=== PATIENT | female | born 2005 ===

== ENCOUNTER 2024-09-23 18:44 | Outpatient (REF) | payer OTHER, SELFPAY ==
--- OUTSIDE RECORDS SUMMARY | 2024-09-23 18:52 | XMS_ITS | Referral Summary ---
Author Organization [facility] Address [address] [place] [address] Care Team Providers Care Soda Dialyzer Name Role Phone Noelle Schmitz Primary Care Provider [phone] Encounters Date Type Department Care Team Description 08/31/2024 7:27 PM EDT - 09/01/2024 3:06 AM EDT Emergency [facility] Emergency Department [address] [place] [id number] Kvng Hodge MD Shaw, Daniel L, MD Chest pain, unspecified type (Primary Dx) Discharge Disposition: Short Term/Acute Care [facility] (02) from Last 3 Months Allergies Active Allergy Reactions Criticality Noted Date Comments Amoxicillin Hives 08/31/2024 Azithromycin Hives 08/31/2024 Clindamycin Hives 08/31/2024 Fremanezumab-Vfrm Hives 08/31/2024 Gabapentin Hallucinations 08/31/2024 Latex Rash 08/31/2024 Penicillin Hives 08/31/2024 Procaine Anaphylaxis High 08/31/2024 Rizatriptan Hives 08/31/2024 Sulfa (Sulfonamide Antibiotics) Hives 08/19 Sumatriptan Hives 08/31/2024 Tomato Hives 08/31/2024 Vancomycin Hives 08/31/2024 Medications levETIRAcetam (KEPPRA) 500 mg tablet Take 500 mg by mouth 2 times a day. Active rifabutin (MYCOBUTIN) 150 mg capsule Take 300 mg by mouth once a day. Active dicyclomine (BENTYL) 20 mg tablet Take 20 mg by mouth 4 times a day. Active metoprolol succinate XL (TOPROL XL) 50 mg tablet Take 50 mg by mouth once a day. Active traZODone (DESYREL) 150 mg tablet Take 200 mg by mouth nightly. Active apixaban (ELIQUIS) 2.5 mg tablet Take 2.5 mg by mouth every 12 hours. Active cyclobenzaprin e (FLEXERIL) 5 mg tablet Take 5 mg by mouth 3 times a day as needed for muscle spasms. Active famotidine (PEPCID) 20 mg tablet Take 20 mg by mouth 2 times a day. Active hydrOXYzine HCL (ATARAX) 25 mg tablet Take 25 mg by mouth 3 times a day as needed for itching. Active pantoprazole (PROTONIX) 40 mg injection Infuse 40 mg intravenously once a day. Active prochlorperazi ne (COMPAZINE) 10 mg tablet Take 10 mg by mouth 2 (two) times a day. Active sertraline (ZOLOFT) 100 mg tablet Take 150 mg by mouth once a day. Active sucralfate (CARAFATE) 1 gram tablet Take 0.5 g by mouth 5 times a day. Active DAPTOmycin in 0.9 % sod chlor 500 mg/50 mL piggyback Infuse 4 mg/kg intravenously once a day. Active Social History Tobacco Use Types Packs/Day Years Used Date Smoking Tobacco: Never Assessed Comments No Sex and Gender Information Value Date Recorded Sex Assigned at Female 08/31/2024 7:26 PM EDT Legal Sex Female 7:25 PM EDT Gender Identity Female 08/31/2024 7:26 PM EDT Sexual Orientation Not on file Last Filed Vital Signs Vital Sign Reading Time Taken Comments Blood Pressure 114/67 08/31/2024 11:46 PM EDT Pulse 82 08/31/2024 11:38 PM EDT Temperature 37.4 C (99.3 F) 08/31/2024 11:38 PM EDT Respiratory Rate 16 08/31/2024 11:38 PM EDT Oxygen Saturation 98% 08/31/2024 11:38 PM EDT Inhaled Oxygen Concentration - - Weight 90.7 kg (200 lb) 08/31/2024 7:42 PM EDT Height 177.8 cm (5' 10 ) 08/31/2024 7:42 PM EDT Body Mass Index 28.7 08/31/2024 7:42 PM EDT Plan of Treatment Not on file Procedures * Due to [place] [employer] law, this organization might not be sharing negative HIV tests. Procedure Name Priority Date/Time Associated Diagnosis Comments XR CHEST PORTABLE 1 VIEW STAT 08/31/2024 8:20 PM EDT ECG 12-LEAD STAT 08/31/2024 8:10 PM EDT TROPONIN T HIGH SENSITIVITY STAT 08/31/2024 7:59 PM EDT COMPREHENSIVE METABOLIC PANEL STAT 08/31/2024 7:59 PM EDT CBC STAT 08/31/2024 7:59 PM EDT from Last 3 Months Results * Due to [place] [employer] law, this organization might not be sharing negative HIV tests. * XR Chest Portable 1 View (08/31/2024 8:20 PM EDT) Anatomical Region Laterality Modality Body Radiographic Jaleesa ging 08/31/2024 9:48 PM EDT Impressions 08/31/2024 9:48 PM EDT No acute pulmonary process. No acute displaced fractures. If this radiology report contains a blank impression section, it is an incomplete radiology report. Please contact the interpreting radiologist or applicable radiology division as soon as possible to obtain the completed interpretation. Workstation ID: [id number] Narrative 08/31/2024 9:48 PM EDT COMPARISON: None. FINDINGS: Multiple overlying telemetry leads. Left-sided PICC with tip termination at the level of the cavoatrial junction. The heart size, mediastinal contours and pulmonary vasculature are within normal limits. The lung volumes are normally inflated. There is no consolidation, pleural effusion or pneumothorax identified. No acute displaced fractures. Resulting Agency Comment [id number] Procedure Note Rolf Anderson MD - 08/31/2024 COMPARISON: None. FINDINGS: Multiple overlying telemetry leads. Left-sided PICC with tip termination at the level of the cavoatrialjunction. The heart size, mediastinal contours and pulmonary vasculature are withinnormal limits. The lung volumes are normally inflated. There is no consolidation, pleuraleffusion or pneumothorax identified. No acute displaced fractures. IMPRESSION: No acute pulmonary process. No acute displaced fractures. If this radiology report contains a blank impression section, it is anincomplete radiology report. Please contact the interpreting radiologistor applicable radiology division as soon as possible to obtain thecompleted interpretation. Workstation ID: [id number] Kvng Hodge MD IMG XR PROCEDURES Final Result * ECG 12 lead (08/31/2024 8:10 PM EDT) Ventricular Rate EKG 94 BPM MUSE EKG Atrial Rate 94 BPM MUSE EKG [place] Interval 154 ms MUSE EKG QRS Interval 66 ms MUSE EKG QT Interval 330 ms MUSE EKG QTC Interval 412 ms MUSE EKG P [place] 43 degrees MUSE EKG R [place] -2 degrees MUSE EKG T Wave [place] 51 degrees MUSE EKG 08/31/2024 8:10 PM EDT 09/01/2024 9:13 AM EDT Impressions MUSE EKG - 09/01/2024 9:13 AM EDT Normal sinus rhythm with artifact No previous ECGs available Confirmed by Cece Carolina ([id number]) on 09/01/2024 9:13:28 AM Narrative Procedure Note Cece Carolina MD - 09/01/2024 IMPRESSION: Normal sinus rhythm with artifact No previous ECGs available Confirmed by Cece Carolina ([id number]) on 09/01/2024 9:13:28 AM Kvng Hogde MD ECG ORDERABLES Final Result MUSE EKG * Troponin T, High Sensitivity (08/31/2024 7:59 PM EDT) Troponin T High Sensitivity 6 6 - 14 ng/L 08/31/2024 9:05 PM EDT [facility] Comment: [id number] level of 52 ng/L or higher at 0-hour at presentation is recommended by the ESC 0/1-hour algorithm for identifying patients at high risk for ruling in acute myocardial infarction (AMI) in the appropriate clinical context. Repeat troponin testing 1-3 hours after the initial sample may be helpful in assessing for ongoing myocardial injury. Troponin elevations can be seen in several other non-infarct conditions, and the change (delta) should be evaluated in line with the 4th Teague Definition of AMI. Troponin baseline and serial elevation for a significant delta should be interpreted with clinical presentation, history, signs and symptoms, ECG, and biomarker concentrations. For inpatient setting: Value <12ng/L is considered negative for all genders. 0-1hr: A delta change of <3 will be considered negative/flat if chest pain onset >3 hours 0-3hr: A delta change of <7 will be considered negative/flat Blood Structure of peripheral vein / Unknown Venipuncture / Unknown 08/31/2024 7:59 PM EDT 08/31/2024 8:03 PM EDT us Kvng Hodge MD LAB BLOOD ORDERABLES Final Res ult [facility] [address] [place] [address] [address] [place] [address], * (ABNORMAL) CBC (08/31/2024 7:59 PM EDT) WBC 3.0(L) 4.8 - 10.8 10*3/uL 08/31/2024 8:56 PM EDT [facility] RBC 3.69(L) 4.20 - 5.40 10*6/uL 08/31/2024 8:56 PM EDT [facility] Hemoglobin 10.6(L) 11.7 - 15.5 g/dL 08/31/2024 8:56 PM EDT [facility] Hematocrit 31.0(L) 35.7 - 45.8 % 08/31/2024 8:56 PM EDT [facility] MCV 84.0 81.0 - 99.0 fL 08/31/2024 8:56 PM EDT [facility] MCH 28.7 26.0 - 34.0 pg 08/31/2024 8:56 PM EDT [facility] MCHC 34.2 31.0 - 36.0 g/dL 08/31/2024 8:56 PM EDT [facility] RDW 11.7(L) 12.0 - 15.0 % 08/31/2024 8:56 PM EDT [facility] Platelets 127(L) 140 - 440 10*3/uL 08/31/2024 8:56 PM EDT [facility] MPV 9.8 9.4 - 12.3 fL 08/31/2024 8:56 PM EDT [facility] RDW Standard Deviation 35.8(L) 36.4 - 46.3 fL 08/31/2024 8:56 PM EDT [facility] Blood Structure of peripheral vein / Unknown Venipuncture / Unknown 08/31/2024 7:59 PM EDT 08/31/2024 8:03 PM EDT us Kvng Hodge MD LAB BLOOD ORDERABLES Final Res ult [facility] [address] [place] [id number], * (ABNORMAL) Comprehensive Metabolic Panel (08/31/2024 7:59 PM EDT) NA 137 136 - 145 mmol/L 08/31/2024 9:19 PM EDT [facility] K 3.7 3.5 - 5.1 mmol/L 08/31/2024 9:19 PM EDT [facility] Cl 101 98 - 109 mmol/L 08/31/2024 9:19 PM EDT [facility] CO2 23 22 - 32 mmol/L 08/31/2024 9:19 PM EDT [facility] Anion Gap 17 >=0 08/31/2024 9:19 PM EDT [facility] Glucose 84 60 - 99 mg/dL 08/31/2024 9:19 PM [facility] Creatinine 0.72 0.50 - 1.12 mg/dL 08/31/2024 9:19 PM [facility] Calcium 8.8 8.4 - 10.4 mg/dL 08/31/2024 9:19 PM [facility] Total Protein 6.4(L) 6.6 - 8.7 g/dL 08/[facility]24 [facility] Albumin 3.7 3.5 - 5.0 g/dL 08/31/2024 9:19 PM [facility] Bilirubin, Total 0.2 0.2 - 1.2 mg/dL 08/31/2024 9:19 PM [facility] Alkaline Phosphatase 117 30 - 200 U/L 08/31/2024 9:19 PM [facility] AST 123(H) 0 - 33 U/L 08/31/2024 9:19 PM [facility] ALT 70(H) <=33 U/L 08/31/2024 9:19 PM [facility] BUN 8 6 - 20 mg/dL 08/31/2024 9:19 PM [facility] eGFR >90 >=60 mL/min/1. 73m2 08/31/2024 9:19 PM [facility] Comment:The estimated glomer ular filtration rate (eGFR) is calculated using a new formula developed by the NKF-ASN task force to eliminate race-based correction factors. The new formula uses serum/plasma creatinine, age, and gender to determine eGFR. A value below 60mls/min might indicate kidney disease and will be flagged. For additional information, see Ambriz et al, Am J Kidney Dis. 2021;79(2):268- 288, A Unifying Approach for GFR estimation: Recommendations of the NKF-ASN Task Force on Reassessing the Inclusion of Race in Diagnosing Kidney Disease . Globulin, Total 2.7 2.1 - 4.2 g/dL 08/31/2024 9:19 PM [facility] A/G Ratio 1.4(L) 1.5 - 3.0 08/31/2024 9:19 PM EDT [facility] Blood Structure of peripheral vein / Unknown Venipuncture / Unknown 08/31/2024 7:59 PM EDT 08/31/2024 8:03 PM EDT us Kvng Hodge MD LAB BLOOD ORDERABLES Final Res ult [facility] [address] [place] [address], [place] [phone] from Last 3 Months Insurance [place] [employer] Care Teams Soda Dialyzer Relationship Specialty Start Date End Date Noelle Schmitz [address] [place] [phone] PCP - General 08/31/24
--- OUTSIDE RECORDS SUMMARY | 2024-09-23 18:52 | XMS_ITS | Clinical Summary ---
Author Organization [address] [facility] Address [address] [place] [address] Phone Care Team Providers Care Protective Signal Repairer Name Role Phone Physician, Pcp Unknown Primary Care Provider Mary vailable Encounters Date Type Department Care Team Description 08/26/2024 Lab Requisition [facility] [address] [facility] [email or web address] [address] Brian Tamayo PA Infection following a procedure, superficial incisional surgical site, initial encounter from Last 3 Months Social History Tobacco Use Types Packs/Day Years Used Date Smoking Tobacco: Never Assessed Comments Unknown Sex and Gender Information Value Date Recorded Sex Assigned at Not on file Legal Sex Female 6:46 PM EDT Gender Identity Not on file Sexual Orientation Not on file Plan of Treatment Health Maintenance Due Date Last Done Comments Gonorrhea/Chlamydia Screening 2004 Varicella Vaccines (1 of 2 - 13+ 2-dose series) 01/17/2017 HPV Vaccines (1 - 3-dose series) 01/17/2019 Meningococcal B Vaccine (1 o f 2 - Standard) 2020 DTaP,Tdap,and Td Vaccines (1 - Tdap) 01/17/2023 Hepatitis B Vaccines (1 of 3 - 19+ 3-dose series) 01/17/2023 COVID-19 Vaccine (1 - 2023-2 5 season) 2023 Depression Screening 02/20/2024 Annual Well Child Visit (3-2 1 years old) 08/27/2024 HIV Screening 08/27/2024 Hepatitis C Screening 08/27/2024 Social Influencers of Health Screening 08/27/2024 Influenza Vaccine (#1) 2024 HIB Vaccines Aged Out No longer eligi ble based on patient's age to complete this topic Hepatitis A Vaccines Aged Out No long er eligible based on patient's age to complete this topic IPV Vaccines Aged Out No longer eligi ble based on patient's age to complete this topic MMR Vaccines Aged Out No longer eligi ble based on patient's age to complete this topic Meningococcal ACWY Vaccine Aged Out N o longer eligible based on patient's age to complete this topic Pneumococcal Vaccine: Pediat rics (0 to 5 Years) and At-Risk Patients (6 to 49 Years) Aged Out No longer eligible b ased on patient's age to complete this topic RSV Immunization Patients Un arnulfo 20 months Aged Out No longer eligible b ased on patient's age to complete this topic Procedures Procedure Name Priority Date/Time Associated Diagnosis Comments SST - GOLD Routine 08/26/2024 12:00 AM EDT Infection following a procedure, superficial incisional surgical site, initial encounter CBC WITH AUTO DIFFERENTIAL Routine 08/26/2024 12:00 AM EDT Infection following a procedure, superficial incisional surgical site, initial encounter CREATINE KINASE Routine 08/26/2024 12:00 AM EDT Infection following a procedure, superficial incisional surgical site, initial encounter CBC AND DIFFERENTIAL Routine 08/26/2024 12:00 AM EDT Infection following a procedure, superficial incisional surgical site, initial encounter COMPREHENSIVE METABOLIC PANEL Routine 08/26/2024 12:00 AM EDT Infection following a procedure, superficial incisional surgical site, initial encounter HEPATIC FUNCTION PANEL Routine 12:00 AM EDT Infection following a procedure, superficial incisional surgical site, initial encounter from Last 3 Months Results * SST tube (08/26/2024 12:00 AM EDT) Extra Tube Hold for add-ons. 08/26/2024 8:01 PM EDT [facility] Comment:Auto resulted. Blood Venous blood specimen / Unknown 08/26/2024 08/26/2024 6:56 PM EDT us Brian TIMMONS LAB BLOOD ORDERABLES Final Re sult [facility] [address] [place] [address], * (ABNORMAL) CBC auto differential (08/26/2024 12:00 AM EDT) WBC 4.6(L) 4.8 - 10.8 K/mcL LAB HEMETOLOGY METHOD 08/26[facility]2024 [facility] RBC 3.40(L) 3.80 - 4.80 M/mcL LAB HEMETOLOGY METHOD 08/26/2024 7:05 PM [facility] Hemoglobin 10.0(L) 11.5 - 16.0 g/dL LAB HEMETOLOGY METHOD 08/26/2024 7:05 PM [facility] Hematocrit 31.5(L) 35.0 - 47.0 % LAB HEMETOLOGY METHOD 08/26/2024 7:05 PM [facility] MCV 91.6 79.0 - 98.0 FL LAB HEMETOLOGY METHOD 08/26/2024 7:05 PM [facility] MCH 29.1 27.0 - 32.0 pcg LAB HEMETOLOGY METHOD 08/26/2024 7:05 PM [facility] MCHC 31.7(L) 32.0 - 37.0 g/dL LAB HEMETOLOGY METHOD 08/26/2024 7:05 PM [facility] RDW 12.0 11.0 - 15.0 % LAB HEMETOLOGY METHOD 08/26/2024 7:05 PM [facility] Platelets 265 130 - 400 K/mcL LAB HEMETOLOGY METHOD 08/26/2024 7:05 PM [facility] MPV 10.1 7.0 - 11.0 FL LAB HEMETOLOGY METHOD 08/26/2024 7:05 PM [facility] NRBC 0.0 <1.0 % LAB HEMETOLOGY METHOD 08/26/2024 7:05 PM [facility] NRBC Absolute 0.00 <0.10 K/mcL LAB HEMETOLOGY METHOD 08/26/2024 7:05 PM [facility] Neutrophils Relative 54.1 % LAB HEMETOLOGY METHOD 08/26/2024 7:05 PM [facility] Lymphocytes Relative 29.9 % LAB HEMETOLOGY METHOD 08/26/2024 7:05 PM [facility] Monocytes Relative 11.4 % LAB HEMETOLOGY METHOD 08/26/2024 7:05 PM [facility] Eosinophils Relative 3.5 % LAB HEMETOLOGY METHOD 08/26/2024 7:05 PM [facility] Basophils Relative 0.9 % LAB HEMETOLOGY METHOD 08/26/2024 7:05 PM [facility] Immature Granulocytes Relative 0.2 % LAB HEMETOLOGY METHOD 08/26/2024 7:05 PM [facility] Neutrophils Absolute 2.48 1.50 - 7.00 K/mcL LAB HEMETOLOGY METHOD 08/26/2024 7:05 PM [facility] Lymphocytes Absolute 1.37 1.00 - 5.00 K/mcL LAB HEMETOLOGY METHOD 08/26/2024 7:05 PM [facility] Monocytes Absolute 0.52 0.20 - 1.00 K/mcL LAB HEMETOLOGY METHOD 08/26/2024 7:05 PM [facility] Eosinophils Absolute 0.16 0.00 - 0.50 K/mcL LAB HEMETOLOGY METHOD 08/26/2024 7:05 PM [facility] Basophils Absolute 0.04 0.00 - 0.20 K/mcL LAB HEMETOLOGY METHOD 08/26/2024 7:05 PM EDT [facility] Immature Granulocytes Absolute 0.01 0.00 - 0.03 K/[facility] LAB HEMETOLOGY METHOD 08/26/2024 7:05 PM EDT [facility] Blood Venous blood specimen / Unknown 08/26/2024 08/26/2024 6:56 PM EDT [facility] [place] LAB BLOOD ORDERABLES Final Re sult Performing Organization Address City/[facility]/ZIP Co de Phone Number [facility] [address] [place] [address], [place] [phone] * Creatine kinase (08/26/2024 12:00 AM EDT) Total CK 27 22 - 269 unit/L LAB CHEMISTRY METHOD 08/26/2024 8:44 PM EDT [facility] Blood Venous blood specimen / Unknown 08/26/2024 08/26/2024 6:56 PM EDT [facility] [place] LAB BLOOD ORDERABLES Final Re sult Performing Organization Address City/[facility]/ZIP Co de Phone Number [facility] [address] [place] [address], [place] [phone] * Hepatic function panel (08/26/2024 12:00 AM EDT) Total Protein 6.3 6.0 - 8.0 g/dL LAB CHEMISTRY METHOD 08/26/2024 8:50 PM EDT [facility] Albumin 3.3 3.2 - 5.0 g/dL LAB CHEMISTRY METHOD 08/26/2024 8:50 PM EDT [facility] Total Bilirubin 0.1 0.0 - 1.4 mg/dL LAB CHEMISTRY METHOD 08/26/2024 8:50 PM EDT [facility] Bilirubin, Direct <0.1 0.0 - 0.3 mg/dL LAB CHEMISTRY METHOD 08/26/2024 8:50 PM EDT [facility] Bilirubin, Indirect LAB CHEMISTRY METHOD 08/26/2024 8:50 PM EDT [facility] Comment:Unable to calculate Indirect Bilirubin. ALT (SGPT) 22 10 - 60 unit/L LAB CHEMISTRY METHOD 08/26/2024 8:50 PM EDT [facility] AST (SGOT) 15 10 - 42 unit/L LAB CHEMISTRY METHOD 08/26/2024 8:50 PM EDT [facility] Alkaline Phosphatase 119 42 - 121 unit/L LAB CHEMISTRY METHOD 08/26/2024 8:50 PM [facility] Blood Venous blood specimen / Unknown 08/26/2024 08/26/2024 6:56 PM EDT Brian TIMMONS LAB BLOOD ORDERABLES Final Re sult [facility] [address] [place] [address], * Comprehensive metabolic panel (08/26/2024 12:00 AM EDT) Sodium 139 133 - 145 mmol/L LAB CHEMISTRY METHOD 08/26/2024 8:50 PM EDT [facility] Potassium 3.7 3.5 - 5.5 mmol/L LAB CHEMISTRY METHOD 08/26/2024 8:50 PM EDT [facility] Chloride 105 96 - 110 mmol/L LAB CHEMISTRY METHOD 08/26/2024 8:50 PM T [facility] CO2 28 21 - 32 mmol/L LAB CHEMISTRY METHOD 08/26/2024 8:50 PM EDT [facility] Anion Gap 6 3 - 11 LAB CHEMISTRY METHOD 08/26/2024 8:50 PM [facility] Glucose 100 70 - 100 mg/dL LAB CHEMISTRY METHOD 08/26/2024 8:50 PM [facility] BUN 13 5 - 25 mg/dL LAB CHEMISTRY METHOD 08/26/2024 8:50 PM [facility] Creatinine 0.64 0.50 - 1.10 mg/dL LAB CHEMISTRY METHOD 08/26/2024 8:50 PM [facility] eGFR 130 >=60 mL/min/1. 73m2 LAB CHEMISTRY METHOD 08/26/2024 8:50 PM [facility] Comment:Calculation based on the Chronic Kidney Disease Epidemiology Collaboration (CKD-EPI) equation refit without adjustment for race. BUN/Creatinine Ratio 20.3 LAB CHEMISTRY METHOD 08/26/2024 8:50 PM [facility] Calcium 9.0 8.5 - 10.5 mg/dL LAB CHEMISTRY METHOD 08/26/2024 8:50 PM [facility] AST (SGOT) 15 10 - 42 unit/L LAB CHEMISTRY METHOD 08/26/2024 8:50 PM [facility] ALT (SGPT) 22 10 - 60 unit/L LAB CHEMISTRY METHOD 08/26/2024 8:50 PM [facility] Alkaline Phosphatase 119 42 - 121 unit/L LAB CHEMISTRY METHOD 08/26/2024 8:50 PM [facility] Total Protein 6.3 6.0 - 8.0 g/dL LAB CHEMISTRY METHOD 08/26/2024 8:50 PM [facility] Albumin 3.3 3.2 - 5.0 g/dL LAB CHEMISTRY METHOD 08/26/2024 8:50 PM [facility] Total Bilirubin 0.1 0.0 - 1.4 mg/dL LAB CHEMISTRY METHOD 08/26/2024 8:50 PM [facility] Blood Venous blood specimen / Unknown 08/26/2024 08/26/2024 6:56 PM EDT Brian TIMMONS LAB BLOOD ORDERABLES Final Re sult [facility] [address] [place] [address], [place] [phone] from Last 3 Months Insurance [employer] Care Teams Protective Signal Repairer Relationship Specialty Start Date End Date Physician, Pcp Unknown PCP - General 08/26/24
[2024-09-23 18:53] LABS: MANUAL DIFF FLAG NO
[2024-09-23 19:24] LABS: Hematocrit 32.2 % (37.0-47.0); Hemoglobin 10.4 g/dl (12.0-16.0); Imm Gran Abs Auto 0.02 X10*3/uL (0.00-0.03); Imm Gran Pct Auto 0.4 % (0.0-0.4); Lymphocytes Absolute Auto 2.0 X10*3/uL (1.2-4.9); Mean Corpuscular HGB Conc 32.3 g/dl (31.0-35.0); Mean Corpuscular Hemoglobin 27.8 pg (27.0-33.0); Mean Corpuscular Volume 86.1 fL (80.0-98.0); NRBC Abs Auto 0.000 X10*3/uL (0.0-0.012); NRBC Pct Auto 0.0 /100WBC (0.0-0.2); Platelet Count 251 X10*3/uL (160-400); Red Blood Count 3.74 X10*6/uL (4.20-5.50); White Blood Count 5.1 X10*3/uL (4.8-10.8)
[2024-09-23 19:39] LABS: Alanine Aminotransferase 11 U/L (0-31); Albumin Level 4.0 g/dL (3.5-5.0); Alkaline Phosphatase 93 U/L (39-117); Anion Gap 15 (12-20); Aspartate Amino Transferase 18 U/L (5-31); Blood Urea Nitrogen 13 mg/dL (9-16); Calcium 8.6 mg/dL (8.4-10.2); Carbon Dioxide 24 mmol/L (22-29); Chloride 108 mmol/L (96-108); Estimated Glomerular Filt Rate > 60; Potassium 3.8 mmol/L (3.3-5.1); Sodium 143 mmol/L (135-145); Total Protein 6.3 g/dL (6.5-8.0)
[2024-09-23 19:44] LABS: Magnesium 1.7 mg/dL (1.6-2.6)
[2024-09-23 20:01] LABS: Thyroid Stimulating Hormone 2.03 uIU/mL (0.32-4.0)
[2024-09-23 20:14] LABS: Folate 7.9 ng/mL (> or = 4.0); Vitamin B12 571 pg/mL (200-900)
== END 2024-09-23 18:45 | disposition home or self-care (01) ==
LOC: HO.LNP 18:44
PROVIDERS: Visit Provider Student in an Organized Health Care Education/Training Program
DX: T81.31XA Disruption of external operation (surgical) wound, not elsewhere classified, initial encounter (principal); T81.41XA Infection following a procedure, superficial incisional surgical site, initial encounter; R53.82 Chronic fatigue, unspecified
CPT/HCPCS: 36415; 80053; 82248; 82306; 82550; 82607; 82746; 83735; 84443; 85025